=== PATIENT | male | born 1965 | race Caucasian/White ===

== ENCOUNTER 2017-05-07 02:13 | Emergency (ER) | payer MEDICARE ==
[~2017-05-07] VITALS: Ht 182.9 cm; Wt 90.7 kg
[~2017-05-07 02:13] MED LIST: NKM
[2017-05-07 02:20] VITALS: BP 134/71
[2017-05-07] MEDS ORDERED: Thiamine HCl 100 MG in D5W 55 ML IVPB ONE (02:30)
--- NOTE | 2017-05-07 03:17 | Emergency Room Report ---
History of Present Illness General Chief Complaint: Alcohol Intoxication Source: EMS Present Illness HPI 52-year-old male with unknown pmhx p/w alcohol intoxication. Brought by EMS, chemistry Patient is too intoxicated at this time to admit to drinking alcohol Currently sleeping comfortably and denying any complaints Allergies: Coded Allergies: UNABLE TO ASSESS (Unverified , 05/07/17) Patient History Past Medical History: see triage record Past Surgical History: none Pertinent Family History: none Reviewed Nursing Documentation: PMH: Agreed, PSxH: Agreed Review of Systems All Other Systems: limited - intoxicated Physical Exam Vital Signs Date Time Temp Pulse Resp B/P (MAP) Pulse Ox O2 Delivery O2 Flow Rate FiO2 05/07/17 02:14 97.3 90 18 124/76 97 Room Air Sp02 EP Interpretation: reviewed, normal General Appearance: other - Middle-age male, disheveled, intoxicated, not responsive Head: normocephalic - scabbed abrasion R forehead, mild ecchymosis under R eye Eyes: bilateral eye normal inspection, bilateral eye PERRL, bilateral eye EOMI ENT: normal ENT inspection, normal pharynx, moist mucus membranes Neck: normal inspection, full range of motion, supple, no meningismus, no bony tend Respiratory: normal inspection, lungs clear, normal breath sounds, no respiratory distress, no retraction, no wheezing, speaking full sentences, chest symmetrical Cardiovascular #1: normal inspection, regular rate, rhythm, no edema, normal capillary refill Cardiovascular #2: 2+ radial (R), 2+ radial (L) Gastrointestinal: normal inspection, non tender, soft, non-distended, no guarding Genitourinary: no CVA tenderness Musculoskeletal: normal inspection, back normal, normal range of motion, non- tender Neurologic: motor strength/tone normal, sensory intact, other - intoxicated so neurological exam is limited Psychiatric: other - intoxicated Skin: normal inspection, normal color, no rash, warm/dry, well hydrated, normal turgor Medical Decision Making Diagnostic Impression: Primary Impression: Acute alcoholic intoxication ER Course 52-year-old male with possible alcohol intoxication DDX: Likely alcohol intoxication Rule out intracranial bleed Plan: BGM, Obtain labs, alcohol level, CT head IVF, pending sobriety ER course: Patient has remained stable during ED stay. Received fluids continues to be intox Signed out patient to Dr. Win 52-year-old male, likely alcohol intoxication CT head is negative Pending sobriety Please note that this Emergency Department Report was dictated using [employer] software tester technology software, occasionally this can lead to erroneous entry secondary to interpretation by the dictation equipment CT/MRI/US Diagnostic Results CT/MRI/US Diagnostic Results #1: Imaging Test Ordered: CT head Impression CT HEAD: Mild paranasal sinus mucosal thickening. Periventricular chronic white matter microangiopathic changes. No ICH, mass effect, or edema. No evidence of acute cortical stroke. Electronically signed by Indra Amaya MD CT/MRI/US Diagnostic Results #2: Imaging Test Ordered: CT C spine Last Vital Signs Date Time Temp Pulse Resp B/P (MAP) Pulse Ox O2 Delivery O2 Flow Rate FiO2 05/07/17 02:14 97.3 90 18 124/76 97 Room Air Referrals: NOT CHOSEN THU/,REFERRING (PCP) Indra Amaya M.D. May 07, 2017 03:17
[2017-05-07] MEDS ORDERED: Tetanus/Diptheria/Pertussis Vaccine 0.5ml Syr IM ONE (03:30)
[2017-05-07] MEDS ORDERED: Thiamine HCl 100mg/ml 2 ml Inj ONE (04:19)
[2017-05-07 04:33] LABS: BASOPHILS % (AUTO) 1.1 % (0.0-2.0); EOSINOPHILS % (AUTO) 2.3 % (0.0-3.0); LYMPHOCYTES % (AUTO) 41.2 % (20.0-45.0); MEAN CORPUSCULAR HEMOGLOBIN 30.7 PG (27.0-31.0); MEAN CORPUSCULAR HGB CONC 31.6 G/DL (32.0-36.0); MEAN CORPUSCULAR VOLUME 97 FL (80-99); MEAN PLATELET VOLUME 6.4 FL (6.5-10.1); MONOCYTES % (AUTO) 7.4 % (1.0-10.0); NEUTROPHILS % (AUTO) 47.9 % (45.0-75.0); PLATELET COUNT 462 K/UL (150-450); RED BLOOD COUNT 3.67 M/UL (4.70-6.10); RED CELL DISTRIBUTION WIDTH 13.4 % (11.6-14.8); WHITE BLOOD COUNT 7.6 K/UL (4.8-10.8)
[2017-05-07 04:49] LABS: ACETAMINOPHEN < 10 ug/mL (10-30); ALANINE AMINOTRANSFERASE 18 U/L (3-41); ALBUMIN/GLOBULIN RATIO 1.1 (1.0-2.7); ALCOHOL 342 mg/dL; ANION GAP 14 (5-15); ASPARTATE AMINO TRANSFERASE 32 U/L (5-40); CARBON DIOXIDE 27 mEQ/L (20-30); CHLORIDE 104 mEQ/L (98-107); CREATININE 0.6 mg/dL (0.7-1.2); GLOMERULAR FILTRATION RATE > 60 mL/min (>60); HEMOLYSIS 1; POTASSIUM 3.6 mEQ/L (3.4-4.9); SODIUM 145 mEQ/L (135-145); TOTAL PROTEIN 6.3 g/dL (6.6-8.7)
[2017-05-07 07:30] VITALS: BP 106/65
[2017-05-07 09:30] VITALS: BP 111/64
--- NOTE | 2017-05-07 09:35 | Diagnostic Imaging Report ---
Indications: Altered mental status Technique: Spiral acquisitions obtained through the brain. Angled axial and coronal 5 x 5 mm slices were reconstructed. Total dose length product 1004 and 60 mGycm. CTDI vol(s) 70 mGy. Dose reduction achieved using automated exposure control Comparison: None Findings: There is mild prominence to the ventricles and extra axial CSF spaces. No acute hemorrhage or edema. No mass effect or midline shift. Normal franco-white differentiation. Intact calvarium. There is ethmoid and bilateral maxillary sinus disease. The orbits are unremarkable. Impression: Mild age-related changes. Negative for acute intracranial bleed or mass effect Incidental finding of sinus disease This agrees with the preliminary interpretation provided overnight by [facility]. The CT scanner at [facility] is accredited by the [employer] and the scans are performed using protocols designed to limit radiation exposure to as low as reasonably achievable to attain images of sufficient resolution adequate for diagnostic evaluation.
--- NOTE | 2017-05-07 09:44 | Diagnostic Imaging Report ---
Indication: Neck pain Technique: Spiral acquisitions obtained through the cervical spine. No IV contrast utilized. Multiplanar reconstructions were generated. Total dose length product 373 mGycm. CTDIvol(s) 16 mGy. Dose reduction achieved using automated exposure control Comparison: None Findings: Bony alignment is normal. No evidence of acute fracture. No dislocations. No prevertebral soft tissue swelling. There is degenerative change of the anterior axial joint. At C3-4, there is mild degenerative disc narrowing. Uncinate hypertrophy and facet arthrosis results in moderate to severe narrowing of the right neural foramen, mild to moderate narrowing of the left neural foramen. No significant discal or protrusion or spinal stenosis At C4-5, facet arthrosis results in moderate to severe narrowing of the bilateral neural foramina. No significant disc bulge or protrusion or spinal stenosis. The disc space is preserved. At C5-6, facet arthrosis results in severe bilateral neural foraminal stenosis. No significant disc bulge or protrusion or spinal stenosis. The disc space is preserved At C6-7, no significant disc bulge or protrusion or spinal stenosis. There is mild degenerative disc narrowing. Facet arthrosis results in mild narrowing of the bilateral neural foramina. At the remaining disc levels, no significant disc bulge or protrusion, spinal stenosis, or neural foraminal narrowing. Included lung apices are clear. There is bilateral maxillary sinus disease. The remainder of the included extraspinal soft tissues are unremarkable. Impression: No acute bony trauma Multilevel degenerative changes, as detailed on a level by level basis above Sinus disease The CT scanner at [facility] is accredited by the [employer] and the scans are performed using protocols designed to limit radiation exposure to as low as reasonably achievable to attain images of sufficient resolution adequate for diagnostic evaluation.
[2017-05-07 13:56] VITALS: BP 119/67
== END 2017-05-07 13:56 | disposition home or self-care (01) ==
LOC: EDBD 02:13 → EMR 02:32 → EDBD 02:32 → EMR 13:56
DX: F10.129 Alcohol abuse with intoxication, unspecified (principal); Z23 Encounter for immunization; M50.31 Other cervical disc degeneration, high cervical region; M54.2 Cervicalgia; M48.02 Spinal stenosis, cervical region; R41.82 Altered mental status, unspecified
CPT/HCPCS: 36415; 70450; 72125; 80053; 80300; 85025; 90471; 90715; 96361; 96365; 96375; 99284; G0480; 80329